=== PATIENT | female | born 1955 | race Caucasian/White ===

== ENCOUNTER 2025-07-19 08:02 | Outpatient (CLI) | payer OTHER | END 2025-07-19 08:03 | disposition home or self-care (01) | LOC: BICCT 08:02 | PROVIDERS: ATTEND Family Medicine | DX: E78.5 Hyperlipidemia, unspecified (principal); Z82.49 Family history of ischemic heart disease and other diseases of the circulatory system | CPT/HCPCS: 75571 ==